=== PATIENT | female | born 1970 ===

== ENCOUNTER 2019-11-11 10:26 | Emergency (ER) | payer SELFPAY ==
[~2019-11-11] VITALS: Ht 165.1 cm; Wt 120.8 kg
[~2019-11-11 10:26] MED LIST: ALBU8.5H5 INH; ARIP20TA5 PO; BENZ0.5T35 PO; CHOL100011 PO; FURO-93 PO; GABA300C10 PO; LAMO100T8 PO; LEVO500T47 PO; LORSARTAN PO; METF100010 PO; MONT10TA11 PO; PANT20TA3 PO; POTA10TA11 PO; PRED5TAB PO; RANI150T4 PO; TRAM50TA2 PO; [UNRECOGNIZED DRUG - REMARK]
[2019-11-11 10:30] VITALS: BP 106/85
[2019-11-11] MEDS ORDERED: SILVER SULF. CRM 1% , 25GM ONE ×2 (10:59→11:20)
[2019-11-11] MEDS ORDERED: HYDROcodone/APAP 5/325 TABLET ONE (10:59)
[2019-11-11] MEDS ORDERED: SILVER SULF. CRM 1%, 400GM TP ONE (11:00)
[2019-11-11] MEDS ORDERED: HYDROcodone/APAP 5/325 TABLET PO ONE (11:00)
--- NOTE | 2019-11-11 12:03 | NUR ---
MULTIPLE DRESSING PLACED WITH SILVADENE CREAM, NON ADHESIVE DRESSING, AND KERLEX PLACED BY REACHER.
--- NOTE | 2019-11-11 12:37 | NUR ---
PT GIVEN D/C PAPERWORK. PT VERBALZED UNDERSANDING.
== END 2019-11-11 12:39 | disposition home or self-care (01) ==
LOC: ED 11:52
DX: L55.0 Sunburn of first degree (principal); L01.01 Non-bullous impetigo; J44.9 Chronic obstructive pulmonary disease, unspecified; Z59.0 Homelessness
CPT/HCPCS: 16020; 82962; 99282; 99283